=== PATIENT | male | born 1950 | race Caucasian/White ===

== ENCOUNTER → 2023-09-14 | Outpatient (CLI) | payer MEDICARE, SELFPAY | END | disposition home or self-care (01) | LOC: LAB 14:49 | PROVIDERS: Visit Provider Urology | DX: R97.20 Elevated prostate specific antigen [PSA] (principal) | CPT/HCPCS: 36415; 84153 ==

== ENCOUNTER → 2023-11-08 | Outpatient (CLI) | payer MEDICARE, SELFPAY ==
--- NOTE | 2023-11-08 | PROSBIL_PTH ---
PATHOLOGY RESULTS PATIENT: DIPESH CADET LOC: [facility] U#:[id number] AGE/SX: 73/M ROOM: RE11/08/[address]: Dr. Mitchell Cunningham MD : 1950 BED: DIS: 11/08/2023 SPEC #: [id number] RECD: 11/08/23 15:56 STATUS: THANH GUEVARA #: [id number] EMELYN: 11/08/23 00:[address]: Mitchell Cunningham DEPT: SURGICAL PATHOLOGY RECD BY: Gil Logan ENTERED: 11/09/23 07:51 SP TYPE: PROST BX FILIBERTO DR: Dr. Samson Heaton, DO Tissues: PROSTATE RIGHT PROSTATE RIGHT PROSTATE RIGHT PROSTATE LEFT PROSTATE LEFT PROSTATE LEFT Procedures: PROSTATE BX HEADER OPERATION: Prostate biopsy PRE-OP DIAGNOSIS: Elevated PSA TISSUE SUBMITTED: A - Right apex, B - Right mid, C - Right base, D - Left apex, E - Left mid, F - Left base MICROSCOPIC DIAGNOSIS A. Right prostate, apex, core biopsy: Prostatic tissue, negative for malignancy. B. Right prostate, mid, core biopsy: Prostatic tissue, negative for malignancy. C. Right prostate, base, core biopsy: Prostatic tissue, negative for malignancy. D. Left prostate, apex, core biopsy: Prostatic tissue, negative for malignancy. E. Left prostate, mid, core biopsy: Prostatic adenocarcinoma. Anali grade: 3+4=7 Number of cores involved: 2/2 Proportion of tissue involved: ~30-40% Perineural invasion: Present. Greatest tumor length: 0.5 cm Focal high-grade prostatic intraepithelial neoplasia (HGPIN). See comment. F. Left prostate, base, core biopsy: Prostatic adenocarcinoma. Anali grade: 3+3=6 Number of cores involved: 1/1 Proportion of tissue involved: ~25-30% Perineural invasion: Not identified. Greatest tumor length: 0.4 cm Focal high-grade prostatic intraepithelial neoplasia (HGPIN). See comment. SJ:lizet 11/10/2023 COMMENT E & F. Immunohistochemistry ([id number]) supports the above diagnosis. Case has been reviewed in consultation with Dr. Del Toro who concurs with the above diagnosis. IDC:[email or web address] MICROSCOPIC DESCRIPTION Slides are reviewed. GROSS DESCRIPTION A - Received is one container designated prostate, right apex. The specimen consists of one elongated fragment of light flood-white soft tissue measuring 1.9 cm in length and 0.1 cm in diameter. The specimen is totally submitted in one cassette. B - Received is one container designated prostate, right mid. The specimen consists of two elongated fragments of light flood-white soft tissue measuring 0.7 and 1.5 cm in length and 0.1 cm in diameter. The specimen is totally submitted in one cassette. C - Received is one container designated prostate, right base. The specimen consists of two small elongated fragments of light flood-white soft tissue measuring 0.3 and 0.4 cm in length and 0.1 cm in diameter. The specimen is totally submitted in one cassette. D - Received is one container designated prostate, left apex. The specimen consists of one elongated fragment of light flood-white soft tissue measuring 1.0 cm in length and 0.1 cm in diameter. The specimen is totally submitted in one cassette. E - Received is one container designated prostate, left mid. The specimen consists of two elongated fragments of light flood-white soft tissue each measuring 1.3 cm in length and 0.1 cm in diameter. The specimen is totally submitted in one cassette. F - Received is one container designated prostate, left base. The specimen consists of one elongated fragment of light flood-white soft tissue measuring 1.3 cm in length and 0.1 cm in diameter. The specimen is totally submitted in one cassette. / RAHUL:lizet 11/09/2023 TC:0 CPT: G0146
--- NOTE | 2023-11-08 | IMM_PTH ---
PATHOLOGY RESULTS PATIENT: DIPESH CADET LOC: [facility] U#:[id number] AGE/SX: 73/M ROOM: RE11/08/[address]: Dr. Mitchell Cunningham MD : 1950 BED: DIS: 11/08/2023 SPEC #: [id number] RECD: 11/10/23 13:40 STATUS: THANH REQ #: [id number] EMELYN: 11/08/23 00:[address]: Mitchell Cunningham DEPT: IMMUNOHISTOCHEMISTRY RECD BY: Simi Kaufman ENTERED: 11/10/23 13:42 SP TYPE: IMMUNO OTHR DR: Dr. Samson Heaton, DO Tissues: PROSTATE LEFT PROSTATE LEFT Procedures: 34BE12 (add) P40 (add) 34BE12 (initial) PHYSICIAN & INSTITUTION [place] [id number] SPECIMEN INFORMATION: Tissue Source: E - Left prostate, mid, F - Left prostate, base Clinical Info: Elevated PSA Specimen Number: [id number] E & F CPT code: 73496, 71430 x3 METHODOLOGY: Deparaffinized sections of prefer/formalin-fixed tissue or PAP/DQ stained slides are incubated with monoclonal/polyclonal antibodies/oligonucleotide probes. Localization is made via biotin free immunoperoxidase method. Appropriate controls are performed and reacted as expected. Results on target cell population are indicated in the following table: RESULTS: ANTIBODY / CLONE RESULT Block E P40 (BC28) negative 34BE12 (34BE12) negative Block F P40 (BC28) negative 34BE12 (34BE12) negative These tests were developed and their performance characteristics determined by [facility]. They may not have been cleared or approved by the [place]. Food and Drug Administration. The FDA has determined that such clearance or approval is not necessary. The above immunohistochemical/dualISH markers are ordered and reviewed by the Pathologist. INTERPRETATION: E. Left prostate, mid, core biopsy: Adenocarcinoma. F. Left prostate, base, core biopsy: Adenocarcinoma. SJ:lizet 11/11/2023
--- OUTSIDE RECORDS SUMMARY | 2023-11-08 16:23 | XMS RPT_ITS | CCD ---
Author Name Unknown Address [address] [place] [address] Organization [facility] Care Team Providers Care Diesel Engine Tester Name Role Phone BELLA PETE Unavailable Unavailable BELLA PETE Unavailable Unavailable BELLA PETE Unavailable Unavailable BELLA PETE MD Primary Care Physician [phone] Unavailable Primary Care Provider UnavailVERA Chen DO Primary Care Physician VERA KAMARA DO Attending Unavailable VERA KAMARA DO Primary Care Unavailable VERA KAMARA DO Attending Unavailable VERA KAMARA DO Primary Care Unavailable VERA KAMARA DO Attending Unavailable VERA KAMARA DO Primary Care Unavailable VERA KAMARA DO Attending Unavailable VERA KAMARA DO Primary Care Unavailable VERA KAMARA DO Attending Unavailable VERA KAMARA DO Primary Care Unavailable KAYCEE MENSAH MD Attending Unavailable VERA KAMARA DO Primary Care Unavailable VERA KAMARA DO Attending Unavailable VERA KAMARA DO Primary Care Unavailable Allergies Allergy Classification Reported Allergen(s) Allergy Type Date of Onset Reaction(s) Facility (6 sources) Bee/Wasp/Ant venom Allergy to substance [facility] Medications Current Medications Medication Drug Class(es) Dates Sig (Normalized) Sig (Original) amoxicillin 875 mg oral tablet (1 source) Penicillin-class Antibacterial Start: 07-29-2022 End: 08-08-2022 take 1 tablet by mouth twice daily amoxicillin (AMOXIL) 875 mg tablet Indications: Acute bronchitis, unspecified organism Take 1 tablet by mouth twice daily for 10 days. 20 tablet 0 07/29/2022 08/08/2022 Active Completed/Discontinued Medications Medication Drug Class(es) Dates Sig (Normalized) Sig (Original) albuterol 0.83 mg/ml inhalation solution (6 sources) beta2-Adrenergic Agonist Start: 09-26-2020 End: 09-21-2021 take 1 dose by inhalation every six hours as needed albuterol 2.5 mg/3 mL (0.083%) inhalation solution Dose : 2.5 mg = 3 mL, Inhalation, q6h, PRN for wheezing, # 120 EA, 11 Refill(s), Pharmacy: [facility]/pharmacy #[id number], COPD with asthma, 155, cm, 10/23/19 7:54:00 EST, Height, kg, 10/23/19 7:54:00 EST, Dosing Weight Start Date: 09/26/20 Stop Date: 09/21/21 Status: Ordered ALBUTEROL, REFILL, INHALATION (1 source) ALBUTEROL, REFILL, INHALATION Inhale as instructed. 0 Active Problems Active Problems Problem Classification Problem Date Documented Da te Episodic/Chronic Acute bronchitis (1 source) Acute bronchitis; Translations: [Acute bronchitis, unspecified] Episodic Asthma (2 sources) Asthma 05-02-2019 Chronic Chronic obstructive pulmonary disease and bronchiectasis (11 sources) Chronic obstructive lung disease; Translations: [Severe chronic obstructive pulmonary disease] Onset: 09-23-2022 05-02-2019 Chronic Past or Other Problems Problem Classification Problem Date Documented Da te Episodic/Chronic Conditions associated with dizziness or vertigo (1 source) Dizziness Onset: 04-27-2017 Episodic Influenza (2 sources) Pneumonia and influenza Onset: 01-03-2018 01-03-2018 Episodic Results Test Name Value Interpretation Reference Range Facil ity Vital Signs Date Time Vital Sign Value Performing Clinician Facility 07-29-2022 09:49-0400 Body temperature 98.01 [degF] Elizabeth Aguilar MD Work Phone: [facility] 07-29-2022 09:49-0400 Body weight 74.84 kg Elizabeth Aguilar MD Work Phone: [facility] 07-29-2022 09:49-0400 Diastolic blood pressure 86 mm[Hg] Elizabeth Aguilar MD Work Phone: [facility] 07-29-2022 09:49-0400 Heart rate 78 /min Elizabeth Aguilar MD Work Phone: [facility] 07-29-2022 09:49-0400 Respiratory rate 18 /min Elizabeth Aguilar MD Work Phone: [facility] 07-29-2022 09:49-0400 SaO2% (BldA) [Mass fraction] 95 % Elizabeth Aguilar MD Work Phone: [facility] 07-29-2022 09:49-0400 Systolic blood pressure 154 mm[Hg] Elizabeth Aguilar MD Work Phone: [facility] 03-30-2022 12:09-0400 Diastolic Blood Pressure NBP [address] RAIZA QUIROS MD [facility] 03-30-2022 12:09-0400 Heart rate 72 /min DR RAIZA QUIROS MD [facility] 03-30-2022 12:09-0400 Respiratory rate 26 /min DR RAIZA QUIROS MD [facility] 03-30-2022 12:09-0400 Systolic Blood Pressure NBP [address] RAIZA QUIROS MD [facility] 03-30-2022 12:01-0400 Diastolic Blood Pressure NBP [address] RAIZA QUIROS MD [facility] 03-30-2022 12:01-0400 Heart rate 69 /min DR RAIZA QUIROS MD [facility] 03-30-2022 12:01-0400 Respiratory rate 24 /min DR RAIZA QUIROS MD [facility] 03-30-2022 12:01-0400 Systolic Blood Pressure NBP [address] RAIZA QUIROS MD [facility] 03-30-2022 11:54-0400 Diastolic Blood Pressure NBP [address] RAIZA QUIROS MD [facility] 03-30-2022 11:54-0400 Heart rate 71 /min DR RAIZA QUIROS MD [facility] 03-30-2022 11:54-0400 Respiratory rate 25 /min DR RAIZA QUIROS MD [facility] 03-30-2022 11:54-0400 Systolic Blood Pressure NBP [address] RAIZA QUIROS MD [facility] 03-30-2022 10:48-0400 Body temperature 97.52 [degF] DR RAIZA QUIROS MD [facility] 03-30-2022 10:48-0400 Heart rate 74 /min DR RAIZA QUIROS MD [facility] 03-30-2022 08:41-0400 Body height [address] RAIZA QUIROS MD [facility] 03-30-2022 08:41-0400 Body weight 70.[address] RAIZA QUIROS MD [facility] Encounters Encounter Date Encounter Type Care Provider Facility Start: 09-06-2023 End: 09-07-2023 ambulatory VERA KAMARA DO Facility:[facility] Start: 09-06-2023 End: 09-06-2023 Patient encounter procedure VERA ELYINS DO [facility] Start: 09-06-2023 End: 09-06-2023 Well adult monitoring check done VERA KAMARA DO [facility] Start: 03-12-2023 End: 03-13-2023 ambulatory VERA KAMARA DO Facility:[facility] Start: 12-10-2022 ambulatory KAYCEE MENSAH MD Faci lity:B Start: 11-18-2022 End: 11-19-2022 ambulatory VERA KAMARA DO Facility:[facility] Start: 10-28-2022 End: 10-29-2022 ambulatory VERA Nathaly ELYKAMARA DO Facility:[facility] Start: 10-28-2022 End: 10-28-2022 Patient encounter procedure VERA Nathaly KAMARA DO [facility] Start: 09-28-2022 End: 09-29-2022 ambulatory VERA Nathaly ELYKAMARA DO Facility:[facility] Start: 09-28-2022 End: 09-28-2022 Patient encounter procedure VERA Nathaly KAMARA DO [facility] Start: 09-28-2022 End: 09-28-2022 Well adult monitoring check done VERA Nathaly ELYKAMARA DO [facility] Start: 09-23-2022 End: 09-28-2022 ambulatory VERA Nathaly ELYKAMARA DO Facility:[facility] Start: 09-23-2022 End: 09-27-2022 Outreach Lab VERA ELYINS DO [facility] Start: 07-29-2022 End: 07-29-2022 Office outpatient new 30 minutes Elizabeth Aguilar MD Work Phone: [facility] Procedures Date Procedure Procedure Detail Performing Clinician Start: 03-18-2022 Basal cell carcinoma of skin (disorder) DR RAIZA QUIROS MD Start: 04-17-2017 Shoulder region stru cture (body structure) BELLA PETE MD Plan of Treatment Date Care Activity Detail Author Start: 06-18-2022 Influenza vaccination INFLUENZA (#1) [facility] Start: 10-31-2021 COVID-19 VACCINE (4 - Booster for Pfizer series) COVID-19 VACCINE (4 - Booster for Pfizer series) [facility] Start: 10-18-2021 ADVANCE DIRECTIVE DISCUSSION ADVANCE DIRECTIVE DISCUSSION [facility] Start: 10-18-2021 DEPRESSION ASSESSMENT DEPRESSION ASS ESSMENT [facility] Start: 01-06-2016 PNEUMOCOCCAL: 65+ (1 - PCV) PNEUMOCOCCAL: 65+ (1 - PCV) [facility] Start: 2001 SHINGRIX VACCINE (1 of 2) SHINGRIX V ACCINE (1 of 2) [facility] Start: 01-06-1996 COLOGUARD (FIT-DNA) COLOGUARD (FIT-D NA) [facility] Start: 01-06-1996 Colonoscopy COLONOSCOPY [facility] Start: 01-06-1996 COLORECTAL CANCER SCREENING COLORECTAL CANCER SCREENING [facility] Start: 01-06-[address] COLONOGRAPHY [facility] Start: 01-06-1996 DIABETES SCREEN DIABETES SCREEN [facility] Start: 01-06-1996 FECAL OCCULT BLOOD FECAL OCCULT BLOO D [facility] Start: 01-06-1996 SIGMOIDOSCOPY SIGMOIDOSCOPY [facility] Start: 1986 LIPID SCREEN LIPID SCREEN [facility] Start: 1970 Urine microalbumin profile DTAP,TDAP ,TD (1 - Tdap) [facility] Start: 1969 HEPATITIS C SCREENING HEPATITIS C SC OCTAVIO [facility] Immunizations Immunization Date Immunization Notes Care Provider Fa cilitejal 08-20-2023 influenza, high dose seasonal, preservative-free; Translations: [Fluad Quadrivalent PF ] VERA KAMARA DO [facility] 08-19-2023 zoster vaccine recombinant VERA KAMARA DO [facility] 09-23-2022 influenza, high dose seasonal, preservative-free VERA KAMARA DO [facility] 09-05-2021 SARS-CoV-2 mRNA (tozinameran) vaccine BELLA PETE MD [facility] Payers Date Payer Category Payer Unknown [id number] 2022 Medicare [id number] 2015 Medicare [id number] 2015 Private Health Insurance [id number] 1950 Unknown [id number] 1950 Unknown [id number] 2.16.8 [id number] 1950 Unknown [id number] 2.16.8 [id number] 1950 Unknown [id number] 2.16.8 [id number] 1950 Unknown [id number] 2.16.8 [id number] 1950 Unknown [id number] 2.16.8 [id number] 1950 Unknown [id number] 2.16.8 [id number] Social History Date Type Detail Facility Start: 10-23-2019 End: 07-29-2022 Tobacco smoking status Never smoked tobacco (finding) [facility] Sex Assigned At Male [facility] Start: 07-29-2022 Tobacco use and exposure Smokeless tobacco non-user [facility] Start: 1950 Sex Assigned At Not on file [facility] Start: 07-19-2022 End: 07-29-2022 Exposure to SARS-CoV-2 (event) Not sure [facility] Functional Status Date Assessment Result Facility 03-30-2022 Functional Status Activity Statu s ADL Repositions self, Sleeps intermittently [facility] 03-30-2022 Functional Status Maintained [facility] Mental Status Date Assessment Result Facility 03-30-2022 Mental Status Orientation Oriented x 4 [facility] 03-30-2022 Mental Status [facility] Clinical Notes 01-15-2022 to 07-29-2022 Patient InstructionsElizabeth Aguilar MD - 07/29/2022 9:59 AM EDT Note Date & Type Note Facility 07-29-2022 Instructions Elizabeth Aguilar MD - 07/29/2022 10:02 AM EDT OTC med as needed Continue your medications and nebulizer treatment as per your doctor instruction F/u PCP for evaluation and care explained details documented in this encounter [facility] 07-29-2022 History of Presen t illness Narrative Dipesh Cadet is a 72 year old MALE who presents with Cough (Productive cough, wheezing congestion---1 week) Cough chest congestion going on for the last 4 to 5 days Has some chest discomfort and shortness of breath He has COPD and has been using his nebulizer treatment at home No fever chills Cough is productive History reviewed. No pertinent past medical history. There is no problem list on file for this patient. Current Outpatient Medications Medication Sig Dispense Refill ALBUTEROL, REFILL, INHALATION Inhale as instructed. No current facility-administered medications for this visit. Social History Tobacco Use Smoking status: Never Smokeless tobacco: Never Vaping Use Vaping Use: Never used Alcohol Use: Not on file Tobacco Use: Never History reviewed. No pertinent family history. Review of Systems Constitutional: Negative for chills, fever and malaise/fatigue. HENT: Positive for congestion. Eyes: Negative. Respiratory: Positive for cough and shortness of breath. Cardiovascular: Negative. BP 154/86 Pulse 78 Temp 98 Resp 18 Wt 165 lb (74.8kg) SpO2 95% Physical Exam Vitals reviewed. Constitutional: General: He is not in acute distress. Appearance: Normal appearance. He is not ill-appearing or toxic-appearing. HENT: Nose: Congestion present. Mouth/Throat: Mouth: Mucous membranes are moist. Pharynx: Oropharynx is clear. Cardiovascular: Rate and Rhythm: Normal rate and regular rhythm. Heart sounds: Normal heart sounds. Pulmonary: Effort: Pulmonary effort is normal. Breath sounds: Wheezing and rhonchi present. Musculoskeletal: Cervical back: Normal range of motion and neck supple. No rigidity. Neurological: Mental Status: He is alert. ASSESSMENT/PLAN: 1. Acute bronchitis, unspecified organism - ICD9: 466.0, ICD10: J20.9 - AMOXICILLIN 875 MG TABLET OTC med as needed Continue your medications and nebulizer treatment as per your doctor instruction F/u PCP for evaluation and care explained details Elizabeth Aguilar MD documented in this encounter [facility] 03-30-2022 Hospital Discharg e instructions Patient Education 03/30/2022 12:06:14 Moderate Conscious Sedation, Adult, Care After Moderate Conscious Sedation, Adult, Care After These instructions provide you with information about caring for yourself after your procedure. Your health care provider may also give you more specific instructions. Your treatment has been planned according to current medical practices, but problems sometimes occur. Call your health care provider if you have any problems or questions after your procedure. What can I expect after the procedure? After your procedure, it is common: To feel sleepy for several hours. To feel clumsy and have poor balance for several hours. To have poor judgment for several hours. To vomit if you eat too soon. Follow these instructions at home: For at least 24 hours after the procedure: Do not: ?Participate in activities where you could fall or become injured. ?Drive. ?Use heavy machinery. ?Drink alcohol. ?Take sleeping pills or medicines that cause drowsiness. ?Make important decisions or sign legal documents. ?Take care of children on your own. Rest. Eating and drinking Follow the diet recommended by your health care provider. If you vomit: ?Drink water, juice, or soup when you can drink without vomiting. ?Make sure you have little or no nausea before eating solid foods. General instructions Have a responsible adult stay with you until you are awake and alert. Take mzpd-enq-mgxtpru and prescription medicines only as told by your health care provider. If you smoke, do not smoke without supervision. Keep all follow-up visits as told by your health care provider. This is important. Contact a health care provider if: You keep feeling nauseous or you keep vomiting. You feel light-headed. You develop a rash. You have a fever. Get help right away if: You have trouble breathing. This information is not intended to replace advice given to you by your health care provider. Make sure you discuss any questions you have with your health care provider. Document Released: 07/25/2014 Document Revised: 09/16/2018 Document Reviewed: 01/23/2017 [employer] Patient Education 2020 [employer] 03/30/2022 12:06:11 Colonoscopy, Adult, Care After, Kbmq-nh-Ymlu Colonoscopy, Adult, Care After This sheet gives you information about how to care for yourself after your procedure. Your doctor may also give you more specific instructions. If you have problems or questions, call your doctor. What can I expect after the procedure? After the procedure, it is common to have: A small amount of blood in your poop for 24 hours. Some gas. Mild cramping or bloating in your belly. Follow these instructions at home: General instructions For the first 24 hours after the procedure: ?Do not drive or use machinery. ?Do not sign important documents. ?Do not drink alcohol. ?Do your daily activities more slowly than normal. ?Eat foods that are soft and easy to digest. Take uhwe-vmf-kukhrql or prescription medicines only as told by your doctor. To help cramping and bloating: Try walking around. Put heat on your belly (abdomen) as told by your doctor. Use a heat source that your doctor recommends, such as a moist heat pack or a heating pad. ?Put a towel between your skin and the heat source. ?Leave the heat on for 20 30 minutes. ?Remove the heat if your skin turns bright red. This is especially important if you cannot feel pain, heat, or cold. You can get burned. Eating and drinking Drink enough fluid to keep your pee (urine) clear or pale yellow. Return to your normal diet as told by your doctor. Avoid heavy or fried foods that are hard to digest. Avoid drinking alcohol for as long as told by your doctor. Contact a doctor if: You have blood in your poop (stool) 2 3 days after the procedure. Get help right away if: You have more than a small amount of blood in your poop. You see large clumps of tissue (blood clots) in your poop. Your belly is swollen. You feel sick to your stomach (nauseous). You throw up (vomit). You have a fever. You have belly pain that gets worse, and medicine does not help your pain. Summary After the procedure, it is common to have a small amount of blood in your poop. You may also have mild cramping and bloating in your belly. For the first 24 hours after the procedure, do not drive or use machinery, do not sign important documents, and do not drink alcohol. Get help right away if you have a lot of blood in your poop, feel sick to your stomach, have a fever, or have more belly pain. This information is not intended to replace advice given to you by your health care provider. Make sure you discuss any questions you have with your health care provider. Document Released: 11/06/2011 Document Revised: 08/04/2018 Document Reviewed: 06/28/2017 [employer] Patient Education 2020 [employer] Follow Up Care 02/27/2022 08:00:26 With:RAIZA QUIROS MD Address: [facility] [place] [address] [phone] [phone] When: Unknown Comments:follow up as needed with PCP. [facility] ADMISSION HISTORY AN D PHYSICIAL CHIEF COMPLAINT: HISTORY OF PRESENT ILLNESS: REVIEW OF SYSTEMS: ACTIVE PROBLEMS: (8) Asthma ([id number]) Basal cell carcinoma (4306980) BPH - benign prostatic hyperplasia ([id number]) Bronchitis (91159897) COPD - Chronic obstructive pulmonary disease (088543900) Gilbert's syndrome (10757751) Osteoarthritis (8779470830) Pneumonia and influenza (634605137) MEDICATIONS: Active Inpt Meds: None Active PRN Meds: None One Time Meds: None Active IV Meds: Lactated Ringers Infusion 1,000 mL (LR 1,000 mL) Start: 03/30/22 8:48:00 EDT, Rate: 50 mL/hr, 03/30/22 8:48:00 EDT ALLERGIES: (1) Bee Stings FAMILY HISTORY: SOCIAL HISTORY: PHYSICAL EXAM: VITALS: [id number](kg) 03/30 10:4836.4140/[id number]--60/13 70.8 03/30 08:41 2.0L/m 24 Hr Tmax: 36.4 at 03/30 10:48 36 Hr Tmax: 36.4 at 03/30 10:48 Vital Signs are the last 5 in the past 48 hours. Weights display the last 5 within 7 days. Initial Wt: 03/30 70.8 kg 156 lb Current Wt: 03/30 70.8 kg 156 lb GENERAL: HEENT: CARDIOVASCULAR: RESPIRATORY: ABDOMEN: EXREMETIES: NEUROLOGICAL: PSYCHIATRIC: LABS: No 36hr Lab Data DIAGNOSTICS: IMPRESSION: PLAN: History and Physical Update I have examined the patient; reviewed the H&P and there are no changes to the H&P unless noted below. History and Physical Update I have examined the patient; reviewed the H&P and there are no changes to the H&P unless noted below. Future Appointments Appointment Date:03/31/2022 08:30:00 AM Scheduled Provider:SHAYY CELESTIN PA-C Location:[facility] Appointment Type:PS OV Post Op Future Scheduled Tests Laboratory* Pathology Tissue Request 01/15/22 * Pathology Tissue Request 03/18/22 [facility] 03-31-2022 Evaluation + Plan note Future Scheduled Tests Laboratory* Pathology Tissue Request 01/15/22 [facility] Evaluation + Plan note Future Appointments Appointment Date:10/21/2022 11:30:00 AM Scheduled Provider:VERA KAMARA DO Location:[facility] Appointment Type:PC OV Appointment Date:10/23/2022 09:00:00 AM Scheduled Provider:VERA KAMARA DO Location:[facility] Appointment Type:PC OV Future Scheduled Tests Laboratory* Pathology Tissue Request 01/15/22 * Pathology Tissue Request 03/18/22 * Prostate Specific Antigen 09/23/22 * Thyroid Stimulating Hormone 09/23/22 * Free T4 09/23/22 * A1C Hemoglobin 09/23/22 * Complete Blood Count 09/23/22 * Lipid Profile 09/23/22 * Microalbumin Level Urine 09/23/22 * Complete Metabolic Panel 09/23/22 [facility] Evaluation + Plan note Future Appointments Appointment Date:10/23/2022 09:00:00 AM Scheduled Provider:VERA KAMARA DO Location:[facility] Appointment Type:PC OV Future Scheduled Tests Laboratory* Pathology Tissue Request 01/15/22 * Pathology Tissue Request 03/18/22 * Prostate Specific Antigen 09/28/22 * Microalbumin Level Urine 09/23/22 [facility] Evaluation + Plan note Future Appointments Appointment Date:12/11/2022 08:30:00 AM Scheduled Provider:VERA KAMARA DO Location:[facility] Appointment Type:PC OV Follow Up Appointment Date:03/26/2023 09:30:00 AM Scheduled Provider:VERA KAMARA DO Location:[facility] Appointment Type:PC OV Follow Up Future Scheduled Tests Laboratory* Pathology Tissue Request 01/15/22 * Pathology Tissue Request 03/18/22 * Prostate Specific Antigen 09/28/22 * Microalbumin Level Urine 09/23/22 [facility] Evaluation + Plan note Future Appointments Appointment Date:09/13/2023 01:30:00 PM Scheduled Provider:VERA KAMARA DO Location:[facility] Appointment Type:PC OV Future Scheduled Tests Laboratory* Albumin/Creatinine Ratio, Random Urine 09/25/23 [facility] Evaluation note* Diagnosis Acute bronchitis, unspecified organism- Primary documented in this encounter [facility] course Narrative No data available for this section [facility] Hospital Discharge instructions No data available for this section [facility] Progress note No data available for this section [facility] Summary Purpose Family History No Family History Records Found No data available for this section No Family History Records Found Advance Directives No Advanced Directives Records FoundNo Advanced Directives Records Found Additional Source Comments (unrecognized sect ion and content) No Status Records FoundNo Status Records Found INFORMATION SOURCE (unrecogn ized section and content) DATE CREATED AUTHOR AUTHOR'S ORGANIZ ATION 09/07/2023 [facility] oundation (ID) Care Team (unrecognized sect ion and content) Personnel Name: BELLA PETE MD Address: [address] [place] [address] Personnel Name: BELLA PETE MD Address: [address] [place] [id number] [place] [address] Care Team Personnel Name: VERA KAMARA DO Position: P4 Physician - Primary Care Member Role: Primary Care Physician Address: Address: [address] [place] [address] Care Team Related Persons Name: ARLEN CADET Address: Home [address] [place] [phone] Source Comments (unrecognize d section and content) In the event this informatio n is protected by the Federal Confidentiality of Alcohol and Drug Abuse Patient Records regulations: The Federal rules restrict any use of the information to criminally investigate or prosecute any alcohol or drug abuse patient.[facility] Reason for Visit (unrecogniz ed section and content) Care Team (unrecognized sect ion and content) Care Team Personnel Name: VERA KAMARA DO Position: P4 Physician - Primary Care Member Role: Primary Care Physician Address: Address: [address] [place] [address] Care Team Related Persons Name: ARLEN CADET Address: Home [address] [place], [place] [id number] [place] Care Team Personnel Name: VERA KAMARA DO Position: P4 Physician - Primary Care Member Role: Primary Care Physician Address: Address: [address] [place] [address] Care Team Related Persons Name: ARLEN CADET Address: Home [address] [place], [place] [id number] [place] Care Team Personnel Name: VERA KAMRAA DO Position: P4 Physician - Primary Care Member Role: Primary Care Physician Address: Address: [address] [place] [address] Care Team Related Persons Name: ARLEN CADET Address: Home [address] [place], [place] [id number] US FOR RECORDS PERTAINING TO PATIENTS WHO ARE OR HAVE BEEN ENROLLED IN A CHEMICAL DEPENDENCY/SUBSTANCEABUSE PROGRAM, SOME INFORMATION MAY BE OMITTED. This clinical summary was aggregated from multiple sources. Caution should be exercised in using it in the provision of clinical care. This summary normalizes information from multiple sources, and as a consequence, information in this document may materially change the coding, format and clinical context of patient data. In addition, data may be omitted in some cases. CLINICAL DECISIONS SHOULD BE BASED ON THE PRIMARY CLINICAL RECORDS. [employer] [facility]. provides no warranty or guarantee of the accuracy or completeness of information in this document.
== END | disposition home or self-care (01) ==
LOC: LABSPEC 15:58
PROVIDERS: Referring Provider Urology; Visit Provider Urology
DX: R97.20 Elevated prostate specific antigen [PSA] (principal)
CPT/HCPCS: 88305; 88341; 88342; G0416

== ENCOUNTER → 2023-11-25 | Outpatient (CLI) | payer MEDICARE, OTHER, SELFPAY ==
--- NOTE | 2023-11-25 07:49 | NM_ITS ---
CLINICAL: 73-year-old male with history of primary prostate carcinoma. WHOLE BODY 99m Tc MDP RADIONUCLIDE BONE SCINTIGRAPHY COMPARISON: None available FINDINGS: Following the intravenous administration of 26.7 mCi of 99m Tc MDP, whole body bone images reveal: 1. There is increased tracer distribution defined in the acromioclavicular and sternoclavicular compartments of both shoulders, the left knee articulation, both wrists, the region of the third through sixth thoracic and third lumbar vertebra, the dorsal medial compartment of the left ankle. 2. The remaining skeletal structures are scintigraphically unremarkable with normal-appearing renal images and urinary bladder activity identified. NM/Bone Scan Whole Body IMPRESSION: 1. The increase in radiotracer distribution defined in the bilateral shoulders, the left knee, the wrist articulations bilaterally, the thoracic and lumbar spine, the left ankle is commensurate with degenerative arthrosis. 2. There is no definitive scintigraphic evidence of skeletal metastatic disease on the present examination. Electronically Signed: Tani Ortiz DO at 23:26 EST ,
--- OUTSIDE RECORDS SUMMARY | 2023-11-25 07:56 | XMS RPT_ITS | CCD ---
Author Name Unknown Address [address] [place] [address] Organization [facility] Care Team Providers Care Durable Medical Equipment Technician Name Role Phone BELLA PETE Unavailable Unavailable BELLA PETE Unavailable Unavailable BELLA PETE Unavailable Unavailable BELLA PETE MD Primary Care Physician Unavailable Primary Care Provider UnavailVERA Chen DO [...] (6 sources) Bee/Wasp/Ant venom Allergy to substance [facility] Medications Current Medications Medication Drug Class(es) Dates [...] wheezing, # 120 EA, 11 Refill(s), Pharmacy: [facility]/pharmacy #[id number], COPD with asthma, 155, cm, 10/23/19 [...] 98.01 [degF] Elizabeth Aguilar MD Work Phone: [facility] 07-29-2022 09:49-0400 Body weight 74.84 kg Elizabeth Aguilar MD Work Phone: [facility] 07-29-2022 09:49-0400 Diastolic blood pressure 86 mm[Hg] Elizabeth Aguilar MD Work Phone: [facility] 07-29-2022 09:49-0400 Heart rate 78 /min Elizabeth Aguilar MD Work Phone: [facility] 07-29-2022 09:49-0400 Respiratory rate 18 /min Elizabeth Aguilar MD Work Phone: [facility] 07-29-2022 09:49-0400 SaO2% (BldA) [Mass fraction] 95 % Elizabeth Aguilar MD Work Phone: [facility] 07-29-2022 09:49-0400 Systolic blood pressure 154 mm[Hg] Elizabeth Aguilar MD Work Phone: [facility] 03-30-2022 12:09-0400 Diastolic Blood Pressure NBP [address] RAIZA QUIROS MD [facility] 03-30-2022 12:09-0400 Heart rate 72 /min DR RAIZA QUIROS MD [facility] 03-30-2022 12:09-0400 Respiratory rate 26 /min DR RAIZA QUIROS MD [facility] 03-30-2022 12:09-0400 Systolic Blood Pressure NBP [address] RAIZA QUIROS MD [facility] 03-30-2022 12:01-0400 Diastolic Blood Pressure NBP [address] RAIZA QUIROS MD [facility] 03-30-2022 12:01-0400 Heart rate 69 /min DR RAIZA QUIROS MD [facility] 03-30-2022 12:01-0400 Respiratory rate 24 /min DR RAIZA QUIROS MD [facility] 03-30-2022 12:01-0400 Systolic Blood Pressure NBP [address] RAIZA QUIROS MD [facility] 03-30-2022 11:54-0400 Diastolic Blood Pressure NBP [address] RAIZA QUIROS MD [facility] 03-30-2022 11:54-0400 Heart rate 71 /min DR RAIZA QUIROS MD [facility] 03-30-2022 11:54-0400 Respiratory rate 25 /min DR RAIZA QUIROS MD [facility] 03-30-2022 11:54-0400 Systolic Blood Pressure NBP [address] RAIZA QUIROS MD [facility] 03-30-2022 10:48-0400 Body temperature 97.52 [degF] DR RAIZA QUIROS MD [facility] 03-30-2022 10:48-0400 Heart rate 74 /min DR RAIZA QUIROS MD [facility] 03-30-2022 08:41-0400 Body height [address] RAIZA QUIROS MD [facility] 03-30-2022 08:41-0400 Body weight 70.[address] RAIZA QUIROS MD [facility] Encounters Encounter Date Encounter Type Care Provider Facility Start: 09-06-2023 End: 09-07-2023 ambulatory VERA KAMARA DO Facility:B Start: 09-06-2023 End: 09-06-2023 Patient encounter procedure VERA ELYINS DO [facility] Start: 09-06-2023 End: 09-06-2023 Well adult monitoring check done VERA KAMARA DO [facility] Start: 03-12-2023 End: 03-13-2023 ambulatory VERA KAMARA DO Facility:[facility] Start: 12-10-2022 ambulatory KAYCEE MENSAH MD Faci lity:B Start: 11-18-2022 End: 11-19-2022 ambulatory VERA KAMARA DO Facility:[facility] Start: 10-28-2022 End: 10-29-2022 ambulatory VERA Nathaly ELYKAMARA DO Facility:[facility] Start: 10-28-2022 End: 10-28-2022 Patient encounter procedure VERA Nathaly KAMARA DO [facility] Start: 09-28-2022 End: 09-29-2022 ambulatory VERA Nathaly ELYKAMARA DO Facility:B Start: 09-28-2022 End: 09-28-2022 Patient encounter procedure VERA Nathaly KAMARA DO [facility] Start: 09-28-2022 End: 09-28-2022 Well adult monitoring check done VERA Nathaly ELYKAMARA DO [facility] Start: 09-23-2022 End: 09-28-2022 ambulatory VERA Nathaly ELYKAMARA DO Facility:B Start: 09-23-2022 End: 09-27-2022 Outreach Lab VERA ELYINS DO [facility] Start: 07-29-2022 End: 07-29-2022 Office outpatient new 30 minutes Elizabeth Aguilar MD Work Phone: [facility] Procedures Date Procedure Procedure Detail Performing Clinician Start: 03-18-2022 Basal cell carcinoma of skin (disorder) DR RAIZA QUIROS MD Start: 04-17-2017 Shoulder region stru cture (body structure) BELLA PETE MD Plan of Treatment Date Care Activity Detail Author Start: 06-18-2022 Influenza vaccination INFLUENZA (#1) [facility] Start: 10-31-2021 COVID-19 VACCINE (4 - Booster for Pfizer series) COVID-19 VACCINE (4 - Booster for Pfizer series) [facility] Start: 10-18-2021 ADVANCE DIRECTIVE DISCUSSION ADVANCE DIRECTIVE DISCUSSION [facility] Start: 10-18-2021 DEPRESSION ASSESSMENT DEPRESSION ASS ESSMENT [facility] Start: 01-06-2016 PNEUMOCOCCAL: 65+ (1 - PCV) PNEUMOCOCCAL: 65+ (1 - PCV) [facility] Start: 2001 SHINGRIX VACCINE (1 of 2) SHINGRIX V ACCINE (1 of 2) [facility] Start: 01-06-1996 COLOGUARD (FIT-DNA) COLOGUARD (FIT-D NA) [facility] Start: 01-06-1996 Colonoscopy COLONOSCOPY [facility] Start: 01-06-1996 COLORECTAL CANCER SCREENING COLORECTAL CANCER SCREENING [facility] Start: 01-06-[address] COL[address]GR[address] [facility] Start: 01-06-1996 DIABETES SCREEN DIABETES SCREEN [facility] Start: 01-06-1996 FECAL OCCULT BLOOD FECAL OCCULT BLOO D [facility] Start: 01-06-1996 SIGMOIDOSCOPY SIGMOIDOSCOPY [facility] Start: 1986 LIPID SCREEN LIPID SCREEN [facility] Start: 1970 Urine microalbumin profile DTAP,TDAP ,TD (1 - Tdap) [facility] Start: 1969 HEPATITIS C SCREENING HEPATITIS C SC OCTAVIO [facility] Immunizations Immunization Date Immunization Notes Care Provider Fa cilitejal 08-20-2023 influenza, high dose seasonal, preservative-free; Translations: [Fluad Quadrivalent PF ] VERA KAMARA DO [facility] 08-19-2023 zoster vaccine recombinant VERA KAMARA DO [facility] 09-23-2022 influenza, high dose seasonal, preservative-free VERA KAMARA DO [facility] 09-05-2021 SARS-CoV-2 mRNA (tozinameran) vaccine BELLA PETE MD [facility] Payers Date Payer Category Payer Unknown [id number] 2022 Medicare [id number] 2015 Medicare [id number] 2015 Private Health Insurance [id number] 1950 Unknown [id number] 2.16.8 [id number] 1950 Unknown [id number] 2.16.8 [id number] 1950 Unknown [id number] 2.16.8 [id number] 1950 Unknown [id number] 2.16.8 [id number] 1950 Unknown [id number] 2.16.8 [id number] 1950 Unknown [id number] 2.16.8 [id number] 1950 Unknown [id number] 2.16.8 [id number] Social History Date Type Detail Facility Start: 10-23-2019 End: 07-29-2022 Tobacco smoking status Never smoked tobacco (finding) [facility] Sex Assigned At Male [facility] Start: 07-29-2022 Tobacco use and exposure Smokeless tobacco non-user [facility] Start: 1950 Sex Assigned At Not on file [facility] Start: 07-19-2022 End: 07-29-2022 Exposure to SARS-CoV-2 (event) Not sure [facility] Functional Status Date Assessment Result Facility 03-30-2022 Functional Status Activity Statu s ADL Repositions self, Sleeps intermittently [facility] 03-30-2022 Functional Status Maintained [facility] Mental Status Date Assessment Result Facility 03-30-2022 Mental Status Orientation Oriented x 4 [facility] 03-30-2022 Mental Status [facility] Clinical Notes 01-15-2022 to 07-29-2022 Patient InstructionsElizabeth Aguilar MD - 07/29/2022 9:59 AM EDT Note Date & Type Note Facility 07-29-2022 Instructions Elizabeth Aguilar MD - 07/29/2022 10:02 AM EDT OTC med as needed Continue your medications and nebulizer treatment as per your doctor instruction F/u PCP for evaluation and care explained details documented in this encounter [facility] 07-29-2022 History of Presen t illness [...] Elizabeth Aguilar MD documented in this encounter [facility] 03-30-2022 Hospital Discharg e instructions Patient [...] until you are awake and alert. Take esvi-xjp-fgqlwgc and prescription medicines only as told by [...] 07/25/2014 Document Revised: 09/16/2018 Document Reviewed: 01/23/2017 [employer] Patient Education 2020 [employer] 03/30/2022 12:06:11 Colonoscopy, Adult, Care After, Ftwq-[id number] Colonoscopy, Adult, Care After This sheet gives [...] are soft and easy to digest. Take hutz-mdt-acounjd or prescription medicines only as told by [...] 11/06/2011 Document Revised: 08/04/2018 Document Reviewed: 06/28/2017 [employer] Patient Education 2020 [employer] Follow Up Care 02/27/2022 08:00:26 With:RAIZA QUIROS MD Address: [facility] [place] [address] [phone] When: Unknown Comments:follow up as needed with PCP. [facility] DODSON ADMISSION HISTORY AN D PHYSICIAL CHIEF COMPLAINT: HISTORY OF PRESENT ILLNESS: REVIEW OF SYSTEMS: ACTIVE PROBLEMS: (8) Asthma (010795788) Basal cell carcinoma (5834274) BPH - benign prostatic hyperplasia (5257261751) Bronchitis (53886539) COPD - Chronic obstructive pulmonary disease (127165262) Gilbert's syndrome (08371858) Osteoarthritis (6761973694) Pneumonia and influenza (496639804) MEDICATIONS: Active Inpt Meds: None Active PRN Meds: None One Time Meds: None Active IV Meds: Lactated Ringers Infusion 1,000 mL (LR 1,000 mL) Start: 03/30/22 8:48:00 EDT, Rate: 50 mL/hr, 03/30/22 8:48:00 EDT ALLERGIES: (1) Bee Stings FAMILY HISTORY: SOCIAL HISTORY: PHYSICAL EXAM: VITALS: [id number](kg) 03/30 10:4836.4140/[id number]--61/13 70.8 03/30 08:41 2.0L/m 24 Hr Tmax: [...] Request 01/15/22 * Pathology Tissue Request 03/18/22 [facility] 03-31-2022 Evaluation + Plan note Future Scheduled Tests Laboratory* Pathology Tissue Request 01/15/22 [facility] Evaluation + Plan note Future Appointments Appointment Date:10/21/2022 11:30:00 AM Scheduled Provider:VERA KAMARA DO Location:[facility] Appointment Type:PC OV Appointment Date:10/23/2022 09:00:00 AM Scheduled Provider:VERA KAMARA DO Location:[facility] Appointment Type:PC OV Future Scheduled Tests Laboratory* Pathology Tissue Request 01/15/22 * Pathology Tissue Request 03/18/22 * Prostate Specific Antigen 09/23/22 * Thyroid Stimulating Hormone 09/23/22 * Free T4 09/23/22 * A1C Hemoglobin 09/23/22 * Complete Blood Count 09/23/22 * Lipid Profile 09/23/22 * Microalbumin Level Urine 09/23/22 * Complete Metabolic Panel 09/23/22 [facility] Evaluation + Plan note Future Appointments Appointment Date:10/23/2022 09:00:00 AM Scheduled Provider:VERA KAMARA DO Location:[facility] Appointment Type:PC OV Future Scheduled Tests Laboratory* Pathology Tissue Request 01/15/22 * Pathology Tissue Request 03/18/22 * Prostate Specific Antigen 09/28/22 * Microalbumin Level Urine 09/23/22 [facility] Evaluation + Plan note Future Appointments Appointment Date:12/11/2022 08:30:00 AM Scheduled Provider:VERA KAMARA DO Location:[facility] Appointment Type:PC OV Follow Up Appointment Date:03/26/2023 09:30:00 AM Scheduled Provider:VERA KAMARA DO Location:[facility] Appointment Type:PC OV Follow Up Future Scheduled Tests Laboratory* Pathology Tissue Request 01/15/22 * Pathology Tissue Request 03/18/22 * Prostate Specific Antigen 09/28/22 * Microalbumin Level Urine 09/23/22 [facility] Evaluation + Plan note Future Appointments Appointment Date:09/13/2023 01:30:00 PM Scheduled Provider:VERA KAMARA DO Location:[facility] Appointment Type:PC OV Future Scheduled Tests Laboratory* Albumin/Creatinine Ratio, Random Urine 09/25/23 [facility] Evaluation note* Diagnosis Acute bronchitis, unspecified organism- Primary documented in this encounter [facility] course Narrative No data available for this section [facility] Hospital Discharge instructions No data available for this section [facility] Progress note No data available for this section [facility] Summary Purpose Family History No Family History Records Found No data available for this section No Family History Records Found Advance Directives No Advanced Directives Records FoundNo Advanced Directives Records Found Additional Source Comments (unrecognized sect ion and content) No Status Records FoundNo Status Records Found INFORMATION SOURCE (unrecogn ized section and content) DATE CREATED AUTHOR AUTHOR'S ORGANIZ ATION 09/07/2023 [facility] ([place]) Care Team (unrecognized sect ion and content) Personnel Name: BELLA PETE MD Address: [address] [place] [address] Personnel Name: BELLA PETE MD Address: [address] [place] [id number] [place] [address] Care Team Personnel Name: VERA KAMARA DO Position: P4 Physician - Primary Care Member Role: Primary Care Physician Address: Address: [address] [place] [address] Care Team Related Persons Name: ARLEN CADET Address: Home [address] [place] [phone] Source Comments (unrecognize d section and content) In the event this informatio n is protected by the Federal Confidentiality of Alcohol and Drug Abuse Patient Records regulations: The Federal rules restrict any use of the information to criminally investigate or prosecute any alcohol or drug abuse patient.[facility] Reason for Visit (unrecogniz ed section and content) Care Team (unrecognized sect ion and content) Care Team Personnel Name: VERA KAMARA DO Position: P4 Physician - Primary Care Member Role: Primary Care Physician Address: Address: [address] [place] [address] Care Team Related Persons Name: ARLEN CADET Address: Home [address] [place], [place] [id number] [place] Care Team Personnel Name: VERA KAMARA DO Position: P4 Physician - Primary Care Member Role: Primary Care Physician Address: Address: [address] [place] [address] Care Team Related Persons Name: ARLEN CADET Address: Home [address] [place], [place] [id number] [place] Care Team Personnel Name: VERA KAMARA DO Position: P4 Physician - Primary Care Member Role: Primary Care Physician Address: Address: [address] [place] [address] Care Team Related Persons Name: ARLEN CADET Address: Home [address] [place], [place] [id number] [place] FOR RECORDS PERTAINING TO PATIENTS WHO [...] BE BASED ON THE PRIMARY CLINICAL RECORDS. [employer] [facility]. provides no warranty or guarantee of the accuracy or completeness of information in this document.
== END | disposition home or self-care (01) ==
LOC: NM 07:47
PROVIDERS: Referring Provider Urology; Visit Provider Urology
DX: C61 Malignant neoplasm of prostate (principal)
CPT/HCPCS: 78306; A9503

== ENCOUNTER → 2023-11-29 | Outpatient (CLI) | payer MEDICARE, OTHER, SELFPAY ==
--- NOTE | 2023-11-29 13:11 | CT_ITS ---
STUDY: CT ABDOMEN AND PELVIS WITH CONTRAST REASON FOR EXAM: Male, 73 years old. MALIGNANT NEOPLASM OF PROSTATE newly diagnosed. RADIATION DOSAGE (If Supplied By Facility): CTDIvol = ( 13.48 ) mGy, DLP = ( 773.16 ) mGycm TECHNIQUE: Transaxial images were obtained from the dome of the diaphragm to the symphysis pubis without oral contrast. IV 100mL Isovue-300 was administered. Sagittal and coronal images were reconstructed. Individualized dose optimization techniques were used for this CT. COMPARISON: None. FINDINGS: Minimal increased markings are seen at the lung bases suggestive of linear scarring and/or atelectasis. Coronary artery calcification. There is a 1.1 cm cyst in the posterior aspect of the dome of the right lobe of the liver. Normal gallbladder and extrahepatic biliary system. Normal spleen. Normal pancreas. Normal bilateral adrenal glands. Normal right kidney. Normal left kidney. Normal visualized stomach. Normal small intestine. Diffuse diverticulosis of the colon. Moderate amount of fecal material is seen in the colon. The appendix is visualized and appears normal. Normal abdominal aorta. Normal inferior vena cava. Normal retroperitoneum. Diffuse bladder wall thickening. Irregularity of the dome of the bladder suggestive of small diverticula. A 1.9 cm x 1.8 cm diverticulum is seen at the base of the bladder on the right side. Calculi are seen at the base of the bladder on the left side. The larger calculus has a spiculated margin and measures 1.5 cm. There is heterogeneous enlargement of the prostate gland. Calcifications are seen within it. The prostate measures 5.4 cm x 4.6 cm. There is a right-sided inguinal hernia containing adipose tissue. There are diffuse degenerative changes of the visualized lumbar spine. Dextroscoliosis. CT/Abdomen/Pelvis W IV Cont ONLY IMPRESSION: Heterogeneous enlargement of the prostate with calcifications and indentation of the bladder base. Irregular appearance of the urinary bladder with scattered diverticula. 2. Calculi are seen at the base of the bladder on the left side. Small cyst in the dome of the right lobe of the liver. Diffuse colonic diverticulosis. Electronically Signed: Ashish Walker MD at 14:10 EST ,
--- OUTSIDE RECORDS SUMMARY | 2023-11-29 13:41 | XMS RPT_ITS | CCD ---
Author Name Unknown Address [address] [place] [address] Organization [facility] Care Team Providers Care Box Sealing Machine Operator Name Role Phone BELLA PETE Unavailable Unavailable [...] (6 sources) Bee/Wasp/Ant venom Allergy to substance [facility] Medications Current Medications Medication Drug Class(es) [...] wheezing, # 120 EA, 11 Refill(s), Pharmacy: [facility]/pharmacy #[id number], COPD with asthma, 155, cm, 10/23/19 [...] 98.01 [degF] Elizabeth Aguilar MD Work Phone: [facility] 07-29-2022 09:49-0400 Body weight 74.84 kg Elizabeth Aguilar MD Work Phone: [facility] 07-29-2022 09:49-0400 Diastolic blood pressure 86 mm[Hg] Elizabeth Aguilar MD Work Phone: [facility] 07-29-2022 09:49-0400 Heart rate 78 /min Elizabeth Aguilar MD Work Phone: [facility] 07-29-2022 09:49-0400 Respiratory rate 18 /min Elizabeth Aguilar MD Work Phone: [facility] 07-29-2022 09:49-0400 SaO2% (BldA) [Mass fraction] 95 % Elizabeth Aguilar MD Work Phone: [facility] 07-29-2022 09:49-0400 Systolic blood pressure 154 mm[Hg] Elizabeth Aguilar MD Work Phone: [facility] 03-30-2022 12:09-0400 Diastolic Blood Pressure NBP [address] RAIZA QUIROS MD [facility] 03-30-2022 12:09-0400 Heart rate 72 /min DR RAIZA QUIROS MD [facility] 03-30-2022 12:09-0400 Respiratory rate 26 /min DR RAIZA QUIROS MD [facility] 03-30-2022 12:09-0400 Systolic Blood Pressure NBP [address] RAIZA QUIROS MD [facility] 03-30-2022 12:01-0400 Diastolic Blood Pressure NBP [address] RAIZA QUIROS MD [facility] 03-30-2022 12:01-0400 Heart rate 69 /min DR RAIZA QUIROS MD [facility] 03-30-2022 12:01-0400 Respiratory rate 24 /min DR RAIZA QUIROS MD [facility] 03-30-2022 12:01-0400 Systolic Blood Pressure NBP [address] RAIZA QUIROS MD [facility] 03-30-2022 11:54-0400 Diastolic Blood Pressure NBP [address] RAIZA QUIROS MD [facility] 03-30-2022 11:54-0400 Heart rate 71 /min DR RAIZA QUIROS MD [facility] 03-30-2022 11:54-0400 Respiratory rate 25 /min DR RAIZA QUIROS MD [facility] 03-30-2022 11:54-0400 Systolic Blood Pressure NBP [address] RAIZA QUIROS MD [facility] 03-30-2022 10:48-0400 Body temperature 97.52 [degF] DR RAIZA QUIROS MD [facility] 03-30-2022 10:48-0400 Heart rate 74 /min DR RAIZA QUIROS MD [facility] 03-30-2022 08:41-0400 Body height [address] RAIZA QUIROS MD [facility] 03-30-2022 08:41-0400 Body weight 70.[address] RAIZA QUIROS MD [facility] Encounters Encounter Date Encounter Type Care Provider Facility Start: 09-06-2023 End: 09-07-2023 ambulatory VREA KAMARA DO Facility:B Start: 09-06-2023 End: 09-06-2023 Patient encounter procedure VERA ELYINS DO [facility] Start: 09-06-2023 End: 09-06-2023 Well adult monitoring check done VERA KAMARA DO [facility] Start: 03-12-2023 End: 03-13-2023 ambulatory VERA KAMARA DO Facility:B Start: 12-10-2022 ambulatory KAYCEE MENSAH MD Faci lity:B Start: 11-18-2022 End: 11-19-2022 ambulatory VERA KAMARA DO Facility:B Start: 10-28-2022 End: 10-29-2022 ambulatory VERA Nathaly ELYKAMARA DO Facility:B Start: 10-28-2022 End: 10-28-2022 Patient encounter procedure VERA Nathaly KAMARA DO [facility] Start: 09-28-2022 End: 09-29-2022 ambulatory VERA Nathaly ELYKAMARA DO Facility:B Start: 09-28-2022 End: 09-28-2022 Patient encounter procedure VERA Nathaly KAMARA DO [facility] Start: 09-28-2022 End: 09-28-2022 Well adult monitoring check done VERA Nathaly ELYKAMARA DO [facility] Start: 09-23-2022 End: 09-28-2022 ambulatory VERA Nathaly ELYKAMARA DO Facility:B Start: 09-23-2022 End: 09-27-2022 Outreach Lab VERA ELYINS DO [facility] Start: 07-29-2022 End: 07-29-2022 Office outpatient new 30 minutes Elizabeth Aguilar MD Work Phone: [facility] [place] Procedures Date Procedure Procedure Detail Performing Clinician Start: 03-18-2022 Basal cell carcinoma of skin (disorder) DR RAIZA QUIROS MD Start: 04-17-2017 Shoulder region stru cture (body structure) BELLA PETE MD Plan of Treatment Date Care Activity Detail Author Start: 06-18-2022 Influenza vaccination INFLUENZA (#1) [facility] Start: 10-31-2021 COVID-19 VACCINE (4 - Booster for Pfizer series) COVID-19 VACCINE (4 - Booster for Pfizer series) [facility] Start: 10-18-2021 ADVANCE DIRECTIVE DISCUSSION ADVANCE DIRECTIVE DISCUSSION [facility] Start: 10-18-2021 DEPRESSION ASSESSMENT DEPRESSION ASS ESSMENT [facility] Start: 01-06-2016 PNEUMOCOCCAL: 65+ (1 - PCV) PNEUMOCOCCAL: 65+ (1 - PCV) [facility] Start: 2001 SHINGRIX VACCINE (1 of 2) SHINGRIX V ACCINE (1 of 2) [facility] Start: 01-06-1996 COLOGUARD (FIT-DNA) COLOGUARD (FIT-D NA) [facility] Start: 01-06-1996 Colonoscopy COLONOSCOPY [facility] Start: 01-06-1996 COLORECTAL CANCER SCREENING COLORECTAL CANCER SCREENING [facility] Start: 01-06-[address] COLONOGRAPHY [facility] Start: 01-06-1996 DIABETES SCREEN DIABETES SCREEN [facility] Start: 01-06-1996 FECAL OCCULT BLOOD FECAL OCCULT BLOO D [facility] Start: 01-06-1996 SIGMOIDOSCOPY SIGMOIDOSCOPY [facility] Start: 1986 LIPID SCREEN LIPID SCREEN [facility] Start: 1970 Urine microalbumin profile DTAP,TDAP ,TD (1 - Tdap) [facility] Start: 1969 HEPATITIS C SCREENING HEPATITIS C SC OCTAVIO [facility] Immunizations Immunization Date Immunization Notes Care Provider Fa cilitejal 08-20-2023 influenza, high dose seasonal, preservative-free; Translations: [Fluad Quadrivalent PF ] VERA KAMARA DO [facility] 08-19-2023 zoster vaccine recombinant VERA KAMARA DO [facility] 09-23-2022 influenza, high dose seasonal, preservative-free VERA KAMARA DO [facility] 09-05-2021 SARS-CoV-2 mRNA (tozinameran) vaccine BELLA PETE MD [facility] Payers Date Payer Category Payer Unknown [id number] 2022 Medicare [id number] 2015 Medicare [id number] 2015 Private Health Insurance [id number] 1950 Unknown [id number] [id number] [id number] 1950 Unknown [id number] 2.16.8 [id number] 1950 Unknown [id number] 2.16.8 [id number] 1950 Unknown [id number] 2.16.8 [id number] 1950 Unknown [id number] 2.16.8 [id number] 1950 Unknown [id number] 2.16.8 [id number] 1950 Unknown [id number] 2.16.8 [id number] Social History Date Type Detail Facility Start: 10-23-2019 End: 07-29-2022 Tobacco smoking status Never smoked tobacco (finding) [facility] Sex Assigned At Male [facility] Start: 07-29-2022 Tobacco use and exposure Smokeless tobacco non-user [facility] Start: 1950 Sex Assigned At Not on file [facility] Start: 07-19-2022 End: 07-29-2022 Exposure to SARS-CoV-2 (event) Not sure [facility] Functional Status Date Assessment Result Facility 03-30-2022 Functional Status Activity Statu s ADL Repositions self, Sleeps intermittently [facility] 03-30-2022 Functional Status Maintained [facility] Mental Status Date Assessment Result Facility 03-30-2022 Mental Status Orientation Oriented x 4 [facility] 03-30-2022 Mental Status [facility] Clinical Notes 01-15-2022 to 07-29-2022 Patient InstructionsElizabeth Aguilar MD - 07/29/2022 9:59 AM EDT Note Date & Type Note Facility 07-29-2022 Instructions Elizabeth Aguilar MD - 07/29/2022 10:02 AM EDT OTC med as needed Continue your medications and nebulizer treatment as per your doctor instruction F/u PCP for evaluation and care explained details documented in this encounter [facility] 07-29-2022 History of Presen t illness Narrative [...] Elizabeth Aguilar MD documented in this encounter [facility] 03-30-2022 Hospital Discharg e instructions Patient Education [...] until you are awake and alert. Take fyoq-nys-bancuok and prescription medicines only as told by [...] 07/25/2014 Document Revised: 09/16/2018 Document Reviewed: 01/23/2017 [employer] Patient Education 2020 [employer] 03/30/2022 12:06:11 Colonoscopy, Adult, Care After, Xdsq-qp-Apss Colonoscopy, Adult, Care After This sheet gives [...] are soft and easy to digest. Take gniv-gxm-jrrdqjv or prescription medicines only as told by [...] 11/06/2011 Document Revised: 08/04/2018 Document Reviewed: 06/28/2017 [employer] Patient Education 2020 [employer] Follow Up Care 02/27/2022 08:00:26 With:RAIZA QUIROS MD Address: [facility] [place] [address] [address] [phone] When: Unknown Comments:follow up as needed with PCP. [facility] [place] ADMISSION HISTORY AN D PHYSICIAL CHIEF COMPLAINT: HISTORY OF PRESENT ILLNESS: REVIEW OF SYSTEMS: ACTIVE PROBLEMS: (8) Asthma (611122050) Basal cell carcinoma (6997636) BPH - benign prostatic hyperplasia (3968719601) Bronchitis (51433211) COPD - Chronic obstructive pulmonary disease (712682882) Gilbert's syndrome (80999739) Osteoarthritis (4257809888) Pneumonia and influenza (252021490) MEDICATIONS: Active Inpt Meds: None Active PRN Meds: None One Time Meds: None Active IV Meds: Lactated Ringers Infusion 1,000 mL (LR 1,000 mL) Start: 03/30/22 8:48:00 EDT, Rate: 50 mL/hr, 03/30/22 8:48:00 EDT ALLERGIES: (1) Bee Stings FAMILY HISTORY: SOCIAL HISTORY: PHYSICAL EXAM: VITALS: HkcjbeOesqMXAmerzAPSqR4EIW2TdszZo(kg) 03/30 10:4836.4140/[id number]--40/13 70.8 03/30 08:41 2.0L/m 24 Hr Tmax: [...] Request 01/15/22 * Pathology Tissue Request 03/18/[address] [facility] 03-31-2022 Evaluation + Plan note Future Scheduled Tests Laboratory* Pathology Tissue Request 01/15/[address] [facility] Evaluation + Plan note Future Appointments [...] Urine 09/23/22 * Complete Metabolic Panel 09/23/[address] [facility] Evaluation + Plan note Future Appointments Appointment Date:10/23/2022 09:00:00 AM Scheduled Provider:VERA KAMARA DO Location:[facility] Appointment Type:PC OV Future Scheduled Tests Laboratory* Pathology Tissue Request 01/15/22 * Pathology Tissue Request 03/18/22 * Prostate Specific Antigen 09/28/22 * Microalbumin Level Urine 09/23/[address] [facility] Evaluation + Plan note Future Appointments [...] Antigen 09/28/22 * Microalbumin Level Urine 09/23/[address] [facility] Evaluation + Plan note Future Appointments Appointment Date:09/13/2023 01:30:00 PM Scheduled Provider:VERA KAMARA DO Location:[facility] Appointment Type:PC OV Future Scheduled Tests Laboratory* Albumin/Creatinine Ratio, Random Urine 09/25/[address] [facility] Evaluation note* Diagnosis Acute bronchitis, unspecified organism- Primary documented in this encounter [facility] course Narrative No data available for this section [facility] Hospital Discharge instructions No data available for this section [facility] Progress note No data available for this section [facility] Summary Purpose Family History No Family History Records Found No data available for this section No Family History Records Found Advance Directives No Advanced Directives Records FoundNo Advanced Directives Records Found Additional Source Comments (unrecognized sect ion and content) No Status Records FoundNo Status Records Found INFORMATION SOURCE (unrecogn ized section and content) DATE CREATED AUTHOR AUTHOR'S ORGANIZ ATION 09/07/2023 [facility] ([place]) Care Team (unrecognized sect ion and content) Personnel Name: BELLA PETE MD Address: [address] [place] [address] Personnel Name: BELLA PETE MD Address: [address] [place] [id number] [place] [address] Care Team Personnel Name: VERA KAMARA DO Position: P4 Physician - Primary Care Member Role: Primary Care Physician Address: Address: [address] [place] [address] Care Team Related Persons Name: ARLEN CADET Address: Home [address] [place] [phone] Source Comments (unrecognize d section and content) In the event this informatio n is protected by the Federal Confidentiality of Alcohol and Drug Abuse Patient Records regulations: The Federal rules restrict any use of the information to criminally investigate or prosecute any alcohol or drug abuse patient.[facility] Reason for Visit (unrecogniz ed section and content) Care Team (unrecognized sect ion and content) Care Team Personnel Name: VERA KAMARA DO Position: P4 Physician - Primary Care Member Role: Primary Care Physician Address: Address: [address] [place] [address] Care Team Related Persons Name: ARLEN CADET Address: Home [address] [place], [place] [id number] [place] Care Team Personnel Name: VERA KAMARA DO Position: P4 Physician - Primary Care Member Role: Primary Care Physician Address: Address: [address] [place] [address] Care Team Related Persons Name: ARLEN CADET Address: Home [address] [place], [place] [id number] [place] Care Team Personnel Name: VERA KAMARA DO Position: P4 Physician - Primary Care Member Role: Primary Care Physician Address: Address: [address] [place] [address] Care Team Related Persons Name: ARLEN CADET Address: Home [address] [place], [place] [id number] [place] FOR RECORDS PERTAINING TO PATIENTS WHO [...] BE BASED ON THE PRIMARY CLINICAL RECORDS. [employer] [facility]. provides no warranty or guarantee of the accuracy or completeness of information in this document.
[2023-11-29 13:51] LABS: CREATININE FINGERSTICK < 1.0 mg/dL (0.70-1.30); EGFR FINGERSTICK > 60.0000 mL/min (>60)
== END | disposition home or self-care (01) ==
LOC: CT 13:09
PROVIDERS: Referring Provider Urology; Visit Provider Urology
DX: C61 Malignant neoplasm of prostate (principal)
CPT/HCPCS: 74177; Q9967

== ENCOUNTER 2024-06-28 09:03 | Day surgery (SDC) | payer MEDICARE, OTHER, SELFPAY ==
[2024-06-28] VITALS (9 sets, daily range): BP systolic 86–131; BP diastolic 52–80; PULSE 52–68; RESP 14–16; TEMP 36.1–36.6; O2SAT 94–99; BMI 30.4
[2024-06-28] MEDS: Lactated Ringers 1,000 ML 15 ML IV (09:33)
--- NOTE | 2024-06-28 09:44 | PRE.ANES_ITS ---
ASA Classification* ASA Classification ASA Classification: 3 Assessment & Plan Anesthesia* Anesthesia Assessment Anesthesia Assessment: Discussed sedation and/or anesthesia options, risks, benefits, and alternatives with patient/parents/legal guardian/POA. Questions invited. The patient/parents/legal guardian/POA seems to understand and agrees to proceed with anesthesia plan. Reviewed the physical assessment, medical history, allergy history and patient home medications list prior to surgery/procedure/anesthetic and documented any changes. Performed airway and anesthesia risk assessments. 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 When Was Last Pacemaker Check QUESTION #4 FULL TEXT: You/Your Family Experience fever (hyperthermia) with Anesthesia Last Oral Intake Last Oral intake: Last Oral Intake NPO since 18:00 06/28/24 09:28 Meds taken in AM with sips of Yes 06/28/24 09:28 water? Meds patient instructed to USE TRELEGY 06/28/24 09:28 take am of surgery PONV PONV - parking lot chauffeur: PONV - parking lot chauffeur Female No 06/22/24 12:09 HX of Motion Sickness Yes 06/22/24 12:09 HX of N/V After Surgery No 06/22/24 12:09 Non-Smoker Yes 06/22/24 12:09 Duration of Surgery greater Yes 06/22/24 12:09 than 60 minutes Number of Risk Factors 3 06/22/24 12:09 PONV Score Moderate Risk 06/22/24 12:09 Height & Weight Height & Weight: Anesthesia: Height & Weight Height 5 ft 1 in 06/28/24 09:28 Weight: 73 kg 06/28/24 09:28 Body Mass Index (BMI) 30.4 06/28/24 09:28 Respiratory Assessment Respiratory Assessment - parking lot chauffeur: Respiratory Tract Infection Hx - parking lot chauffeur Hx Respiratory Tract Infection No 06/22/24 12:09 STOP Sleep Apnea STOP Sleep Apnea - parking lot chauffeur: STOP Sleep Apnea - parking lot chauffeur Hx Hypertension No 06/22/24 12:09 Hx Sleep Apnea No 06/22/24 12:09 CPAP BIPAP Do you snore loudly (louder No 06/22/24 12:09 than talking or can be heard Do you often feel tired/ No 06/22/24 12:09 fatigued/ sleepy during daytime? Has anyone observed you stop No 06/22/24 12:09 breathing during sleep? STOP Results Negative 06/22/24 12:09 QUESTION #5 FULL TEXT : Do you snore loudly (louder than talking or can be heard through closed doors)? Tobacco Use History Tobacco Use History - parking lot chauffeur: Tobacco Use History - parking lot chauffeur Tobacco Use Smoking Status Never smoker 06/22/24 12:09 Hx Tobacco Use No 06/22/24 12:09 Years Smoking Packs Smoked per Day Smoking Cessation Date was within the last 15 years Hx Smoking Cessation Date Hx Smoking Cessation Counseling Hematologic Medial History Hematologic Hx - parking lot chauffeur: Hematologic Medical Hx - drug safety physician Hx of Blood Transfusion No 06/22/24 12:09 Hx of Transfusion in last 3 No 06/22/24 12:09 Months Date of Last Transfusion (if within last 3 months) Ever experience any problems No 06/22/24 12:09 with transfusion(s)? Specify any problems Hx of Preganancy in last 3 N/A 06/22/24 12:09 Months Nurse Filling Out Transfusion VCHRISTIN 06/22/24 12:09 & Questions: Date: 06/22/24 06/22/24 12:09 Time: 12:10 06/22/24 12:09 Patient unable to answer at this time (ie. confused, unrespo /Reproduction History /Reproductive History - parking lot chauffeur: /Reproductive Hx- parking lot chauffeur Hx Now Gestational Age (in weeks): EDC: Hx Hx Para Hx Section SAB Active Medications Active Medications: Current Medications Generic Name Dose Route Start Last Admin Trade Name Freq PRN Reason Stop Dose Admin Cefazolin Sodium 2 gm/ Sodium 110 mls @ 150 mls/hr 06/28/24 11:25 Chloride IV 06/28/24 12:08 PREOP ONE Lactated Ringer's 1,000 mls @ 15 mls/hr 06/28/24 09:15 06/28/24 09:33 IV 15 mls/hr .Q48H DEANA Administration PFSH Medical History Wears glasses Cancer Arthritis Kidney stone Non-smoker COPD (chronic obstructive pulmonary disease) Shortness of breath on exertion Hoarseness History of pain when walking Chronic respiratory failure with hypoxia Emphysema lung Prostate cancer BPH (benign prostatic hyperplasia) Home Medications ?Medication ?Instructions ?Recorded ?Last Taken ?Type albuterol sulfate 90 mcg/actuation 2 puff inhalation Q6H PRN 05/11/24 Unknown History aerosol inhaler shortness of breath or wheezing fluticasone fur. 200 mcg-umeclid 1 inh inhalation DAILY 05/11/24 06/28/24 History 62.5 mcg-vilant 25 mcg inhalat.powder (Trelegy Ellipta) cholecalciferol (vitamin D3) 25 25 mcg PO DAILY 06/22/24 06/27/24 History mcg (1,000 unit) capsule (Vitamin D3) multivitamin with minerals-folic 2 tab PO DAILY 06/22/24 06/27/24 History acid 200 mcg chewable tablet (Adult Multivitamin Gummies) Allergy/AdvReac Type Severity Reaction Status Date / Time bee venom protein (honey Allergy Unknown unknown Verified 06/28/24 09:22 bee) (bee sting) Surgical History Hx of tonsillectomy Hx of inguinal hernia repair Hx of shoulder surgery Hx of prostate biopsy Hx of transurethral resection of prostate Hx of colonoscopy Social History Smoking Status: Never smoker alcohol intake: never substance use type: does not use Review of Systems (Anesthesia) ROS Narrative System reviewed and no additional complaints, except as documented.
--- NOTE | 2024-06-28 10:54 | PCM.HP.STD ---
HPI - General General Date of Service: 06/28/24 Chief Complaint: Prostate cancer HPI Narrative DIPESH CADET, is a 74 M who presents for placement of gold markers and spacer gel in anticipation of treatment for prostate cancer with radiation [facility] Medical History Wears glasses Cancer Arthritis Kidney stone Non-smoker COPD (chronic obstructive pulmonary disease) Shortness of breath on exertion Hoarseness History of pain when walking Chronic respiratory failure with hypoxia Emphysema lung Prostate cancer BPH (benign prostatic hyperplasia) Home Medications ?Medication ?Instructions ?Recorded ?Last Taken ?Type albuterol sulfate 90 mcg/actuation 2 puff inhalation Q6H PRN 05/11/24 Unknown History aerosol inhaler shortness of breath or wheezing fluticasone fur. 200 mcg-umeclid 1 inh inhalation DAILY 05/11/24 06/28/24 History 62.5 mcg-vilant 25 mcg inhalat.powder (Trelegy Ellipta) cholecalciferol (vitamin D3) 25 25 mcg PO DAILY 06/22/24 06/27/24 History mcg (1,000 unit) capsule (Vitamin D3) multivitamin with minerals-folic 2 tab PO DAILY 06/22/24 06/27/24 History acid 200 mcg chewable tablet (Adult Multivitamin Gummies) Allergy/AdvReac Type Severity Reaction Status Date / Time bee venom protein (honey Allergy Unknown unknown Verified 06/28/24 09:22 bee) (bee sting) Surgical History Hx of tonsillectomy Hx of inguinal hernia repair Hx of shoulder surgery Hx of prostate biopsy Hx of transurethral resection of prostate Hx of colonoscopy Social History Smoking Status: Never smoker alcohol intake: never substance use type: does not use Vital Signs Vital Signs Vital Signs: 06/28/24 09:28 06/28/24 09:28 06/28/24 09:44 Temperature 97.9 F 97.9 F Temperature Source Temporal Pulse Rate 68 68 Respiratory Rate 16 16 Respiratory Pattern Normal Blood Pressure 131/80 H 131/80 H Blood Pressure Mean 97 Blood Pressure Source Monitor Blood Pressure Position Semi-Fowlers Blood Pressure Location Right Arm Pulse Ox 99 99 Oxygen Delivery Method Nasal Cannula Oxygen Flow Rate (L/min) 2 2 Weight Weight: 73 kg Body Mass Index (BMI) 30.4
--- NOTE | 2024-06-28 10:55 | PCM.DC ---
Discharge Instructions Diet Discharge Diet: No restrictions Activity Discharge Activity: Return to Normal Activity and May Not Drive (while taking narcotic pain medications.) Dressing / Incision Call your doctor if you observe: Fever of 101 or Higher Follow Up Care Please Follow Up With: Mitchell Cunningham MD When: Call [phone] for an appointment Test Results: Test results from this visit will be discussed in further detail at your follow-up appointment, if applicable. Discharge Plan Admission Primary Reason for Your Visit: Placement of gold markers and spacer gel Attending Provider: Mitchell Cunningham Primary Care Provider: Samson Heaton Instructions Print Language: Kiswahili Discharge Orders/Prescriptions Prescriptions: Continued albuterol sulfate 90 mcg/actuation HFA aerosol inhaler 2 puff inhalation Q6H PRN (Reason: shortness of breath or wheezing) Trelegy Ellipta 200-62.5-25 mcg blister with device 1 inh inhalation DAILY cholecalciferol (vitamin D3) [Vitamin D3] 25 mcg (1,000 unit) capsule 25 mcg PO DAILY multivit with min-folic acid [Adult Multivitamin Gummies] 200 mcg tablet,chewable 2 tab PO DAILY Referrals / Follow Up: Mitchell Cunningham MD [Med Staff - Active Staff] - Samson Heaton DO [Primary Care Provider] - Disposition Disposition (needs filled in before D/C Order can be placed): Home, Self Care
[2024-06-28] MEDS: Cefazolin 2 GM in 0.9% Normal Saline (100mL Bag) 100 ML IV (11:33)
--- NOTE | 2024-06-28 11:46 | OP.PCM_ITS ---
Report of Operation Date of Procedure: 06/28/24 Pre-Operative Diagnosis: Prostate cancer Post-Operative Diagnosis: The same Surgery/Procedure Performed:: Placement of gold markers and spacer gel matrix for prostate cancer treatment planning Description of Surgical Findings:: Patient was taken back to the operating room after smooth induction of anesthesia he was placed supine on the table. The genitals and perineum were prepped and draped in usual sterile fashion. I then introduced a biplanar ultrasound probe into the rectum and performed ultrasonography and identified the Denonvilliers' fascia the prostate mid base and apex and seminal vesicles. The spacer gel mix was then prepared on the back table per manufactures instruction. Under ultrasound guidance in the midline perineum a bevel needle down we advanced through the perineum below the prostate into the space of Denonvilliers' fascia. This space which could be identified by ultrasound with a bright white layer between the prostate and the rectum. I then injected a puff of normal saline to identify the space further. After I confirmed that the needle was in the correct space in the mid prostate and the space of Denonvilliers' fascia between the rectum and the prostate. Then over the course of 15 seconds the gel matrix was injected slowly there was nice separation between the prostate and the rectum at the gel matrix was injected. The position of the gel matrix was confirmed by ultrasound. Then the injection needle was removed intact. Patient's perineum was cleaned patient was taken out of stirrups and then taken back to the PACU in good condition. The penis and testicles were prepped and draped in usual sterile fashion, ultrasound probe was placed into the rectum and biplanar ultrasound was performed on the prostate. Identified the base mid and apex of the prostate identified the transition zone prostate. Then using a needle the first burrer marker axle was placed into the right base of the prostate, the second burrer marker axle was placed in the left base of the prostate, and the third core marker was placed in the right apex of the prostate after all 3 markers were placed the placement of the markers were confirmed by ultrasonography. Surgeon: Mitchell Cunningham Type of Anesthesia: General Drains: none Admit VTE Documentation VTE Present on Admission: No VTE Mechan Device Prophylaxis: SCD's VTE Pharm Prophylaxis ordered?: No
--- NOTE | 2024-06-28 11:57 | PCM.POST.ANE ---
Anesthesia: Postop Eval I Current Vital Signs Temperature: 97.4 F Pulse Rate: 60 Blood Pressure: 86/52 Respiratory Rate: 14 Pulse Ox: 98 Oxygen Delivery Method: Simple Mask Oxygen Flow Rate (L/min): 4 Assessment Airway patent: Yes Spontaneous unlabored respirations: Yes Mental status: Awake and Calm nausea: No Vomiting: No Anesthesia Complication: No Fluid Hydration Crystalloid volume administer (ml): 600 Total IV fluid infused: 600 Progress Note Anesthesia document: Postop Eval 1 completed: Yes
--- NOTE | 2024-06-28 12:42 | PCM.POSTANE2 ---
Anesthesia Postop Eval I Sum Postop Eval Completion status Anesthesia document: Postop Eval 1 completed: Yes Anesthesia Postop Eval I Summary Anesthesia Postop Eval I Summary: Anesthesia Postop Eval I: Assessment Summary Airway patent Yes 06/28/24 11:58 [email or web address] Spontaneous unlabored Yes 06/28/24 11:58 [email or web address] respirations Mental status Awake,Calm 06/28/24 11:58 [email or web address] nausea No 06/28/24 11:58 [email or web address] Vomiting No 06/28/24 11:58 [email or web address] Anesthesia Postop Eval I: Fluid Summary Crystalloid volume administer 600 06/28/24 11:58 [email or web address] (ml) Colloids volume administered ( ml) Blood Product volume administered (ml) Total IV fluid infused 600 06/28/24 11:58 [email or web address] Anesthesia Postop Eval I: Summary Notes Anesthesia Complication No 06/28/24 11:58 [email or web address] Anesthesia Complication Comment: Post-operative progress note Anesthesia: Postop Eval II Evaluation Mental status: Awake Pain Level: 0 nausea: No Vomiting: No
== END 2024-06-28 13:08 | disposition home or self-care (01) ==
LOC: SDC 09:04 → AC 09:06
PROVIDERS: Referring Provider Urology; Visit Provider Urology
PROC: (CPT 55874; principal; 2024-06-28 11:10)
DX: C61 Malignant neoplasm of prostate (principal); J44.9 Chronic obstructive pulmonary disease, unspecified; Z79.51 Long term (current) use of inhaled steroids
CPT/HCPCS: 55876; 00400; J7120; J2405

== ENCOUNTER → 2024-07-04 | Outpatient (CLI) | payer MEDICARE, OTHER, SELFPAY ==
--- NOTE | 2024-07-04 08:29 | MRI_ITS ---
STUDY: MR PELVIS WITH T WITHOUT CONTRAST REASON FOR EXAM: Male, 74 years old. int risk prostate, eval extent of disease TECHNIQUE: Standardized fat and water weighted pulse sequences were obtained in all 3 orthogonal planes with small [id number] T2 sequences, diffusion with ADC, and postcontrast imaging. Wide [id number]-[id number] axial T1 and T2 obtained through the mid and lower pelvis. Administration. 15 ML IV CLARISCAN was administered for the contrast portion of the examination. COMPARISON: CT abdomen pelvis November 29, 2023, nuclear medicine bone scan July 25, 2024. FINDINGS: Prostate measures 3.4 x 2.4 x 2.9 cm (12ml) Central gland: anterior central defect as can be seen with transurethral resection of prostate or distortion from biopsy. Focal 5 mm right anterior central gland T1 hyperattenuation suggestive of hemorrhage from recent biopsy, series 4 image 29. No focal diffusion restriction versus enhancement. Peripheral zone: Right posterior body is lobulated with diffuse T2 hypointense posterior bulge along the right rectal prostatic angle, in the region of the neurovascular bundle. At the left inferior apex is ill-defined hyperintense T2 signal which replaces fat signal to the margin of the left pelvic floor, reference coronal T2 series 9 image 9 and axial T2 series 10 image 22. Heterogeneous speckled increased signal on diffusion and decreased signal on ADC. No focal suspicious enhancement. Trace dependent fluid between the prostate and rectum which is commonly procedure related Bladder wall is mildly irregular with multiple trabeculations and distention compatible with chronic outlet dysfunction, measuring 12.1 x 7.9 x 7.3 cm (362ml). Nonspecific bilateral external iliac lymph nodes up to 7 mm in short axis, reference axial T1 series 4 image 23 and also on the right on image 21. MRI/Pelvis W/WO Contrast IMPRESSION: Postbiopsy or postprocedural changes as above. Diffuse suspicious hypointense T2 signal along the right body peripheral zone which can be seen with malignancy though diffusion is heterogeneous, PI-RADS 3 by criteria. The right posterior body hypointense T2 signal extends posteriorly into expected location of neurovascular bundle concerning for localized extraprostatic spread. Additionally there is extraprostatic hypointense T2 signal at the left posterior apex adjacent to the internal sphincter without evidence of intramuscular extension of disease. Indeterminate bilateral external iliac lymph nodes which are not significantly changed from November 29, 2023. Trabeculated bladder compatible with chronic outlet dysfunction. Electronically Signed: Catalino Bennett MD at 19:05 EDT ,
[2024-07-04 09:07] LABS: CREATININE FINGERSTICK < 1.0 mg/dL (0.70-1.30); EGFR FINGERSTICK > 60.0000 mL/min (>60)
== END | disposition home or self-care (01) ==
LOC: MRI 08:25
PROVIDERS: Referring Provider Student in an Organized Health Care Education/Training Program; Visit Provider Student in an Organized Health Care Education/Training Program
DX: Z01.812 Encounter for preprocedural laboratory examination (principal)
CPT/HCPCS: 72197; A9575

== ENCOUNTER → 2025-08-07 | Outpatient (CLI) | payer MEDICARE, OTHER, SELFPAY ==
[2025-08-07 10:50] LABS: PSA,Total- Diagnostic 0.10 ng/mL (0.00-4.00)
== END | disposition home or self-care (01) ==
LOC: LAB 09:38
PROVIDERS: Referring Provider Urology; Visit Provider Urology
DX: C61 Malignant neoplasm of prostate (principal)
CPT/HCPCS: 36415; 84153